=== PATIENT | female | born 1945 | race Caucasian/White ===

== ENCOUNTER 2016-04-14 12:03 | Emergency (ER) | payer MEDICARE, BC ==
[~2016-04-14] VITALS: Ht 160 cm; Wt 52.9 kg
[~2016-04-14 12:03] MED LIST: ALPR0.5T3 PO; CIPR500T4 PO; ENOX30P SQ; LIPI80TA16 PO; PERC5TAB12 PO; POTA-243 PO; ULTR50TA PO; Z.0.CPM; [UNRECOGNIZED DRUG - CODE] PO
[2016-04-14 12:13] VITALS: BP 122/70; PULSE 75; RESP 16; TEMP 98.5; O2SAT 98
[2016-04-14] MEDS ORDERED: ALEN1TAB48 PO (12:27)
[2016-04-14] MEDS ORDERED: CLOP75TA PO (12:27)
[2016-04-14] MEDS ORDERED: ATOR1TAB18 PO (12:27)
[2016-04-14] MEDS ORDERED: POTA75TA PO (12:27)
[2016-04-14] MEDS ORDERED: ALPR0.5T3 PO (12:27)
[2016-04-14] MEDS ORDERED: VITA100064 PO (12:27)
[2016-04-14 12:31] VITALS: BP 162/59; PULSE 67; RESP 18; O2SAT 97
[2016-04-14] MEDS ORDERED: SODIUM CHLOR 0.9% 1000 ML INJ 1,000 ML IV SCH (12:40)
[2016-04-14] MEDS ORDERED: SODIUM CHLORIDE 0.9% FLUSH 5 ML FLUSH IVF PRN (12:45)
[2016-04-14] MEDS ORDERED: ONDANSETRON HCL 4 MG/2 ML VIAL IVP ONE (12:45)
--- NOTE | 2016-04-14 12:46 | PD ---
HPI Chief Complaint: GI Complaint Time Seen by Provider: 12:33 Travel History International Travel<30 days: No Contact w/Intl Traveler<30days: No Traveled to known affect area: No History of Present Illness HPI The patient is a 70-year-old female who presents emergency department for nausea, vomiting, and diarrhea. The patient states she was in [place] last week, had a few days of the "runs ", however, states her diarrhea resolved. However, the patient awakened Sunday night with epigastric abdominal pain and then had a bowel movement she describes as loose, watery, and dark. The patient states that the epigastric abdominal pain at that time has resolved, however, she continues to have nausea and multiple episodes of diarrhea which she describes as loose, watery, and brown. The patient denies any visible blood in her diarrhea. The patient was able to eat chicken broth yesterday as well as Gatorade, however, the nausea returned. The patient called her primary physician, Dr. Narayanan, who referred her to the emergency department for further evaluation. The patient denies any acute abdominal pain upon presentation, does complain of mild nausea. The patient has a previous history of complete hysterectomy, denies any known history of gallbladder- related disorders. Patient denies any accompanying fever, chills, or sweats. PFSH Past Medical History Hx Anticoagulant Therapy: Yes (PLAVIX) Arthritis: Yes (OSTEOARTHRITIS) Autoimmune Disease: No Blood Disorders: No Anxiety: No Depression: No Cancer: Yes (LEFT LUNG CANCER) Cardiovascular Problems: Yes (CHOL) High Cholesterol: Yes Chemotherapy: No Cerebrovascular Accident: Yes (TIA) Diabetes: No Diminished Hearing: No Endocrine: No Gastrointestinal Disorders: Yes (NAUSEA FOR THE LAST WEEK) Genitourinary: No Hepatitis: No Hiatal Hernia: No Immune Disorder: No Kidney Stones: No Musculoskeletal: Yes (ARTHRITIS RIGHT HIP AND OSTEOPOROSIS) Neurologic: Yes Psychiatric: No Reproductive: No Respiratory: No Migraines: No Radiation Therapy: No Renal Failure: No Seizures: No Thyroid Disease: No Influenza Vaccination: Yes PNEUMOCCOCAL Vaccine (Year): 2 ?: Not Menopausal: Yes Past Surgical History Abdominal Surgery: No AICD: No Body Medical Devices: NONE Cardiac Surgery: No Ear Surgery: No Endocrine Surgery: No Eye Surgery: No Genitourinary Surgery: No Gynecologic Surgery: Yes (HYSTERECTEMY) Hysterectomy: Yes Joint Replacement: No Mastectomy: Yes Neurologic Surgery: No Oral Surgery: Yes (TONSILECTEMY) Pacemaker: No Thoracic Surgery: Yes (LEFT UPPER LOBECTOMY) Tonsillectomy: Yes Social History Alcohol Use: No Tobacco Use: No (QUIT 12/2010) Substance Use: No Allergies-Medications (Allergen,Severity, Reaction): Coded Allergies: Levaquin (Verified Allergy, Intermediate, Nausea/Vomiting, 04/14/16) Hydrocodone (Unverified Adverse Reaction, Severe, Nausea/Vomiting, 04/14/16 ) Reported Meds & Prescriptions Reported Meds & Active Scripts Active Reported Vitamin D (Cholecalciferol) 1,000 Unit Tab 1,200 Units PO DAILY Alendronate (Alendronate Sodium) 70 Mg Tab 70 Mg PO Q7D Potassium 75 Mg Tab 10 Mg PO DAILY Clopidogrel (Clopidogrel Bisulfate) 75 Mg Tab 75 Mg PO DAILY Atorvastatin (Atorvastatin Calcium) 80 Mg Tab 80 Mg PO HS Alprazolam 0.5 Mg Tab 1 Mg PO HS PRN Review of Systems Except as stated in HPI: all other systems reviewed are Neg General / Constitutional: No: Fever Cardiovascular: No: Chest Pain or Discomfort Respiratory: No: Shortness of Breath Gastrointestinal: Positive: Nausea, Vomiting, Diarrhea, Abdominal Pain Genitourinary: No: Dysuria Musculoskeletal: No: Weakness Neurologic: No: Weakness, Dizziness Physical Exam Narrative GENERAL: Awake, alert, pleasant 30-year-old female who appears her stated age and is in no acute respiratory distress. SKIN: Warm and dry. HEAD: Atraumatic. Normocephalic. EYES: No scleral icterus. No injection or drainage. ENT: No nasal bleeding or discharge. No visible teeth. Slightly dry mucous membranes. NECK: Trachea midline. No JVD. CARDIOVASCULAR: Regular rate and rhythm. No murmur appreciated. RESPIRATORY: No accessory muscle use. Clear to auscultation. Breath sounds equal bilaterally. GASTROINTESTINAL: Abdomen soft, non-tender, nondistended. Negative Cobb's. Negative McBurney's. No rebound tenderness, guarding, or rigidity. MUSCULOSKELETAL: No obvious deformities. No clubbing. No cyanosis. No edema. NEUROLOGICAL: Awake and alert. No obvious cranial nerve deficits. Motor grossly within normal limits. Normal speech. PSYCHIATRIC: Appropriate mood and affect; insight and judgment normal. Data Data Last Documented VS Vital Signs Date Time Temp Pulse Resp B/P Pulse Ox O2 Delivery O2 Flow Rate FiO2 04/14/16 12:59 65 18 148/61 97 Room Air 04/14/16 12:13 98.5 Orders Complete Blood Count With Diff (04/14/16 12:40) Comprehensive Metabolic Panel (04/14/16 12:40) Lipase (04/14/16 12:40) Lactic Acid (04/14/16 12:40) Urinalysis - C+S If Indicated (04/14/16 12:40) Iv Access Insert/Monitor (04/14/16 12:40) Ecg Monitoring (04/14/16 12:40) Oximetry (04/14/16 12:40) Ondansetron Inj (Zofran Inj) (04/14/16 12:45) Sodium Chlor 0.9% 1000 Ml Inj (Ns 1000 M (04/14/16 12:40) Sodium Chloride 0.9% Flush (Ns Flush) (04/14/16 12:45) Urine Culture (04/14/16 12:41) Labs Laboratory Tests Test 04/14/16 04/14/16 12:41 12:46 Urine Collection Type CLEAN CATCH Urine Color YELLOW Urine Turbidity CLEAR Urine pH 5.5 Urine Specific [place] 1.018 Urine Protein NEG mg/dL Urine Glucose (UA) NEG mg/dL Urine Ketones NEG mg/dL Urine Occult Blood MOD Urine Nitrite NEG Urine Bilirubin NEG Urine Leukocyte Esterase SMALL Urine WBC 9-14 /hpf Urine Squamous Epithelial > 8 /hpf Cells Urine Bacteria MOD /hpf Microscopic Urinalysis Comment CULTURE INDICATED Urine Collection Time 12:41 White Blood Count 6.4 TH/MM3 Red Blood Count 4.36 MIL/MM3 Hemoglobin 12.9 GM/DL Hematocrit 39.1 % Mean Corpuscular Volume 89.8 FL Mean Corpuscular Hemoglobin 29.5 PG Mean Corpuscular Hemoglobin 32.8 % Concent Red Cell Distribution Width 14.6 % Platelet Count 210 TH/MM3 Mean Platelet Volume 8.5 FL Neutrophils (%) (Auto) 71.8 % Lymphocytes (%) (Auto) 22.8 % Monocytes (%) (Auto) 4.0 % Eosinophils (%) (Auto) 0.6 % Basophils (%) (Auto) 0.8 % Neutrophils # (Auto) 4.5 TH/MM3 Lymphocytes # (Auto) 1.5 TH/MM3 Monocytes # (Auto) 0.3 TH/MM3 Eosinophils # (Auto) 0.0 TH/MM3 Basophils # (Auto) 0.1 TH/MM3 CBC Comment DIFF FINAL Differential Comment Sodium Level 144 MEQ/L Potassium Level 3.7 MEQ/L Chloride Level 106 MEQ/L Carbon Dioxide Level 30.3 MEQ/L Anion Gap 8 MEQ/L Blood Urea Nitrogen 11 MG/DL Creatinine 1.10 MG/DL Estimat Glomerular Filtration 49 ML/MIN Rate Random Glucose 108 MG/DL Lactic Acid Level 0.8 mmol/L Calcium Level 8.5 MG/DL Total Bilirubin 0.6 MG/DL Aspartate Amino Transf 16 U/L (AST/SGOT) Alanine Aminotransferase 19 U/L (ALT/SGPT) Alkaline Phosphatase 82 U/L Total Protein 7.2 GM/DL Albumin 3.4 GM/DL Lipase 151 U/L [facility] Medical Decision Making Medical Screen Exam Complete: Yes Emergency Medical Condition: Yes Medical Record Reviewed: Yes Interpretation(s) Laboratory Tests Test 04/14/16 04/14/16 12:41 12:46 Urine Collection Type CLEAN CATCH Urine Color YELLOW Urine Turbidity CLEAR Urine pH 5.5 Urine Specific [place] 1.018 Urine Protein NEG mg/dL Urine Glucose (UA) NEG mg/dL Urine Ketones NEG mg/dL Urine Occult Blood MOD Urine Nitrite NEG Urine Bilirubin NEG Urine Leukocyte Esterase SMALL Urine WBC 9-14 /hpf Urine Squamous Epithelial > 8 /hpf Cells Urine Bacteria MOD /hpf Microscopic Urinalysis Comment CULTURE INDICATED Urine Collection Time 12:41 White Blood Count 6.4 TH/MM3 Red Blood Count 4.36 MIL/MM3 Hemoglobin 12.9 GM/DL Hematocrit 39.1 % Mean Corpuscular Volume 89.8 FL Mean Corpuscular Hemoglobin 29.5 PG Mean Corpuscular Hemoglobin 32.8 % Concent Red Cell Distribution Width 14.6 % Platelet Count 210 TH/MM3 Mean Platelet Volume 8.5 FL Neutrophils (%) (Auto) 71.8 % Lymphocytes (%) (Auto) 22.8 % Monocytes (%) (Auto) 4.0 % Eosinophils (%) (Auto) 0.6 % Basophils (%) (Auto) 0.8 % Neutrophils # (Auto) 4.5 TH/MM3 Lymphocytes # (Auto) 1.5 TH/MM3 Monocytes # (Auto) 0.3 TH/MM3 Eosinophils # (Auto) 0.0 TH/MM3 Basophils # (Auto) 0.1 TH/MM3 CBC Comment DIFF FINAL Differential Comment Sodium Level 144 MEQ/L Potassium Level 3.7 MEQ/L Chloride Level 106 MEQ/L Carbon Dioxide Level 30.3 MEQ/L Anion Gap 8 MEQ/L Blood Urea Nitrogen 11 MG/DL Creatinine 1.10 MG/DL Estimat Glomerular Filtration 49 ML/MIN Rate Random Glucose 108 MG/DL Lactic Acid Level 0.8 mmol/L Calcium Level 8.5 MG/DL Total Bilirubin 0.6 MG/DL Aspartate Amino Transf 16 U/L (AST/SGOT) Alanine Aminotransferase 19 U/L (ALT/SGPT) Alkaline Phosphatase 82 U/L Total Protein 7.2 GM/DL Albumin 3.4 GM/DL Lipase 151 U/L Differential Diagnosis Differential diagnosis includes gastroenteritis, viral syndrome, food poisoning , dehydration, acute renal failure, pancreatitis, hepatitis, peptic ulcer disease, diverticulitis, colitis. Narrative Course IV was established, labs were drawn and sent, and the patient was placed on cardiac telemetry monitoring and continuous pulse oximetry monitoring. Patient was administered Zofran and IV fluids. The patient had no abdominal pain upon presentation and abdominal exam was benign, therefore, no pain medication or CT the abdomen/pelvis was initially ordered. Patient's white count was normal. Patient's creatinine is mildly elevated at 1.10. UA reveals WBCs and bacteria, therefore, will be treated for UTI. The patient was reassessed at 1:40 PM, her symptoms had significantly improved. Patient be discharged home on Zofran and Bactrim. The patient will be provided a copy of her labs so she can follow-up with her primary physician. She is advised to have a clear liquid diet and advance as tolerated. Return if symptoms worsen or progress. Diagnosis Primary Impression: Gastroenteritis Additional Impression: UTI (urinary tract infection) Qualified Code: N30.00 - Acute cystitis without hematuria Patient Instructions: General Instructions Additional Instructions: Clear liquid diet. Advance diet as tolerated. Bactrim and Zofran as needed. Please provide the patient a copy of her labs at discharge. Follow-up with her primary physician. Return if symptoms worsen or progress. Med/Other Pt SpecificInfo: Prescription(s) given Scripts Ondansetron Odt (Zofran Odt)4 Mg Tab4 Mg SL Q6HR PRN (Nausea/Vomiting) #7 TAB Ref 0 Prov:Frank Barrera MD 04/14/16 Sulfamethoxazole-Trimethoprim (Bactrim DS)800-160 Mg Tab1 Tab PO BID #6 TAB Ref 0 Prov:Frank Barrera MD 04/14/16 Disposition: 01 DISCHARGE HOME Condition: Stable Frank Barrera MD Apr 14, 2016 12:46
[2016-04-14 12:52] VITALS: O2SAT 98
[2016-04-14 12:59] VITALS: BP 148/61; PULSE 65; RESP 18; O2SAT 97
[2016-04-14 13:00] LABS: GLUCOSE,URINE NEG (NEG); KETONE, URINE NEG (NEG); NITRITE,URINE NEG (NEG); PH, URINE 5.5 (5.0-8.5)
[2016-04-14 13:02] LABS: AUTOMATED NEUTROPHIL # 4.5 TH/MM3 (1.8-7.7); BASOPHIL # 0.1 TH/MM3 (0-0.2); BASOPHIL % 0.8 % (0.0-2.0); EOSINOPHIL % 0.6 % (0.0-4.0); HEMATOCRIT 39.1 % (35.0-46.0); HEMO FLAGS DIFF FINAL; LYMPH % 22.8 % (9.0-44.0); LYMPHOCYTE # 1.5 TH/MM3 (1.0-4.8); MEAN CELL VOLUME 89.8 FL (80.0-100.0); MEAN CORPUSCULAR HEMOGLOBIN 29.5 PG (27.0-34.0); MEAN CORPUSCULAR HGB CONC 32.8 % (32.0-36.0); NEUT % 71.8 % (16.0-70.0); PLATELET COUNT 210 TH/MM3 (150-450); RED BLOOD COUNT 4.36 MIL/MM3 (4.00-5.30); RED CELL DISTRIBUTION WIDTH 14.6 % (11.6-17.2); WHITE BLOOD COUNT 6.4 TH/MM3 (4.0-11.0)
[2016-04-14 13:07] LABS: CHLORIDE 106 MEQ/L (98-107); POTASSIUM 3.7 MEQ/L (3.5-5.1); SODIUM (NA) 144 MEQ/L (136-145)
[2016-04-14 13:11] LABS: BLOOD, URINE MOD (NEG); METHOD OF COLLECTION CLEAN CATCH; URINE COLOR YELLOW (YELLW/STRAW)
[2016-04-14 13:11] LABS: ANION GAP 8 MEQ/L (5-15); BICARBONATE 30.3 MEQ/L (21.0-32.0); BLOOD UREA NITROGEN 11 MG/DL (7-18)
[2016-04-14 13:12] LABS: BACTERIA, URINE MOD /hpf; COMMENT (UR) CULTURE INDICATED; CULTURE IF INDICATED CULTURE INDICATED; SQUAMOUS EPITHELIAL CELL URINE > 8 /hpf (0-5)
[2016-04-14 13:13] LABS: ALT (GPT) 19 U/L (10-53)
[2016-04-14 13:14] LABS: AST (GOT) 16 U/L (15-37); GLOMERULAR FILTRATION RATE 49 ML/MIN (>89)
[2016-04-14 13:15] LABS: TOTAL BILIRUBIN ADULT 0.6 MG/DL (0.2-1.0)
[2016-04-14 13:16] LABS: ALKALINE PHOSPHATASE 82 U/L (45-117)
[2016-04-14] MEDS ORDERED: ZOFR4TAB3 SL (13:42)
[2016-04-14] MEDS ORDERED: BACT800T5 PO (13:42)
== END 2016-04-14 13:53 | disposition home or self-care (01) ==
LOC: PHED 12:03
DX: N39.0 Urinary tract infection, site not specified (principal); K52.9 Noninfective gastroenteritis and colitis, unspecified; R11.2 Nausea with vomiting, unspecified; R19.7 Diarrhea, unspecified; Z79.01 Long term (current) use of anticoagulants; E78.00 Pure hypercholesterolemia, unspecified; Z86.73 Personal history of transient ischemic attack (TIA), and cerebral infarction without residual deficits; M81.0 Age-related osteoporosis without current pathological fracture; Z87.891 Personal history of nicotine dependence
CPT/HCPCS: 80053; 81001; 83605; 83690; 85025; 87086; 96361; 96374; 99284; J2405; J7030

== ENCOUNTER 2018-04-15 06:42 | Inpatient (IN) ==
[2018-04-15] MEDS ORDERED: Post-op Orders (for Pharmacy) OTHER STA (07:01)
[2018-04-15] MEDS ORDERED: HYDROmorphone PF Inj 1 MG/ML Ampul IV.PUSH PRN (07:01)
[2018-04-15] MEDS ORDERED: Bisacodyl 10 MG Supp RECTAL PRN (07:01)
[2018-04-15] MEDS ORDERED: Dexamethasone Inj 20 MG/5 ML Vial IV.PUSH SCH (07:21)
[2018-04-15] MEDS ORDERED: ceFAZolin 2 GM IV; once IV.SIG SCH (07:30)
[2018-04-15] MEDS ORDERED: Chlorhexidine 4% Topical 120 APPLIC/120 ML Bottle TOPICAL SCH (07:30)
[2018-04-15] MEDS ORDERED: Dexamethasone PF Inj 10 MG/ML Vial ONE ×2 (07:32→07:34)
[2018-04-15] MEDS ORDERED: Sodium Chlor 0.9% Inj 250 ML ONE (07:34)
[2018-04-15] MEDS ORDERED: Sodium Chlor 0.9% Inj 40 ML, Bupivacaine Liposo PF 1.3% Inj 20 ML P-ARTICULR ONE ×4 (07:39→07:55)
[2018-04-15] MEDS ORDERED: Dexamethasone PF Inj 10 MG/ML Vial IV.PUSH SCH (07:45)
[2018-04-15] MEDS ORDERED: Metoprolol Tartrate 25 MG Tablet PO ONE ×3 (07:47→08:06)
[2018-04-15] MEDS ORDERED: Chlorhexidine Gluconate 2% 1 Pack (2 Cloths) TOPICAL ONE ×3 (07:47→08:06)
[2018-04-15] MEDS ORDERED: SODIUM CHLOR 0.9% IV.SIG SCH (08:00)
[2018-04-15] MEDS ORDERED: Vancomycin Inj 1,000 MG in Sodium Chlor 0.9% Inj 250 ML IV.SIG SCH (08:00)
[2018-04-15] MEDS ORDERED: TRANEXAMIC ACID IV.SIG SCH (08:00)
[2018-04-15] MEDS ORDERED: Sodium Chlor 0.9% Inj 500 ML IV.SIG SCH ×3 (08:00→09:00)
[2018-04-15] MEDS ORDERED: Tranexamic Acid Inj 3,000 MG in Sodium Chlor 0.9% Inj 100 ML P-ARTICULR SCH (08:00)
[2018-04-15] MEDS ORDERED: Glycopyrrolate Inj 1 MG/5 ML Syringe IV.PUSH ONE (10:45)
[2018-04-15] MEDS ORDERED: Neostigmine Inj 5 MG/5 ML Syringe IV.PUSH ONE (10:45)
[2018-04-15] MEDS ORDERED: Lidocaine PF 1% Inj 5 ML Syringe OTHER ONE (10:45)
--- NOTE | 2018-04-15 12:54 | P.OP ---
Procedure: PREOPERATIVE DIAGNOSIS: Right hip osteoarthritis. POSTOPERATIVE DIAGNOSIS: Right hip osteoarthritis. PROCEDURE PERFORMED: Right total hip arthroplasty. SURGEON: Dr. Shawn Carranza M.D. FUNERAL ARRANGEMENT DIRECTOR: ANNE MARIE Driscoll. ANESTHESIA: General. ESTIMATED BLOOD LOSS: 250 mL. COMPLICATIONS: None. IMPLANTS USED: Depuy [place] femoral stem 10 [place] Gripsion Cup []50 Poly insert liner neutral [] 50/32 femoral head [] 32 mm cobalt chrome neck length [] +1 JUSTIFICATION: This patient presents to the undersigned at the orthopedic clinic with chief complaints of severe Right hip pain. The pain is severe and constant and interferes with activities of daily living. The patient has failed greater than 3 months of nonoperative conservative treatment to include analgesic and nonsteroidal anti-inflammatory medications, physical therapy, cortisone injections, activity modification, weight loss, home exercise program, and use of ambulatory assistive aids. X-rays of right hip reveal severe osteoarthritis with [id number] joint space narrowing, subchondral sclerosis, subchondral cysts, osteophyte formation with subluxation. The patient was counseled on risks, benefits, and alternatives to a total hip arthroplasty. The risks were discussed, which include, but are not limited to, anesthesia, bleeding, infection, damage to nerves and blood vessels , pain, stiffness, fracture, dislocations, leg length discrepancy, failure of components, blood clots, pulmonary embolus, and even . The patient favored the benefits over the risks, did wish to proceed with surgery. PROCEDURE IN DETAIL: Written consent was obtained. The patient was identified by name, taken to the operating room and placed supine on the operating table. General anesthesia was administered. The patient was preoperative IV antibiotics. The patient right and left feet were placed in the padded traction boots. The right hip and lower extremity was then prepped and draped using isopropyl alcohol, Hibiclens solution and ChloraPrep solution. After a timeout was performed, a longitudinal incision was made over the anterior aspect of the right hip. The fascia mario was incised. Dissection was carried over the tensor fascia mario beneath the rectus femoris. After exposure of the anterior capsule, a capsulotomy incision was performed. An oscillating saw was used to perform a femoral neck cut. The osteoarthritic femoral head and neck was removed. A 10 blade scalpel was used to excise the labrum. Sequential reaming of the acetabulum was performed. Subsequently a porous-coated titanium acetabular cup was implanted in a press manner in approximately 45 degrees of abduction and 10 degrees of anteversion. 3 screws were placed in the posterior superior quadrant for additional stabilization. There was good purchase and fixation after insertion of the acetabular cup and screws. The cup was tested manually and noted to have excellent stability and fixation. A neutral highly cross-linked polyethylene liner was placed within the cup. The liner was impacted in place for fixation and tested for stability. Attention was turned to the femur where the leg was externally rotated, extended and adducted. The capsule was released off the undersurface of the greater trochanter to allow for elevation and lateralization of the femur. A box cutting osteotome was used to gain entrance into the intramedullary canal of the femur. This was followed by a canal finder and sequential broaching. A calcar planer to plane the calcar. A trial head and neck combination were evaluated prior to implantation of final components. With the final implants placed, the leg could achieve external rotation of 70 degrees and extension to the the ground without evidence of anterior instability or impingement. Soft tissue tension felt appropriate. Fluoroscopic imaging showed appropriate implantation of components. The Surgical wound was thoroughly irrigated with sterile saline Pulse Lavage antibiotic impregnated solution. The fascial layer was closed with #1 Vicryl suture, subcutaneous layer with 2-0 Vicryl sutures. The skin was closed with Dermabond. Sterile dressing applied. No intraoperative complications noted. Johnathon Flores, Physician Building Stonecutter, Certified was present for the entire procedure to include the patient position, the procedure itself. The medical necessity of a physician library circulation assistant was indicated in this case due to the complexity of the procedure. He assisted with position of the patient along with the ear itself. During the procedure he assisted with exposure and the retraction of muscle, tendon, bone, and neurovascular vessel structures. He assisted with the preparation of bone and also implantation of the prosthetic replacement. There was a surgical device sales representative in the room that assisted with management of instruments, but was not available to assist with the surgery itself. Shawn Barrera MD Surgeon: Shawn Barrera MD
[2018-04-15] MEDS ORDERED: *Meperidine Inj 25 MG/ML Vial PERIprocedural Use ONLY ONE (13:15)
[2018-04-15] MEDS ORDERED: fentaNYL Citrate Inj 100 MCG/2 ML Ampul ONE (13:18)
[2018-04-15] MEDS ORDERED: *morphine SULFATE 4 MG/ML PERIprocedure ONLY ONE (13:34)
--- NOTE | 2018-04-15 13:43 | XR ---
EXAM DATE: 04/15/2018 1:12 PM EST AGE/SEX: 72 years / Female INDICATIONS: Post-op total right hip arthroplasty. CLINICAL DATA: This is the patient's initial encounter. Patient reports that signs and symptoms have been present for 1 day and indicates a pain score of Nonresponsive. MEDICAL/SURGICAL HISTORY: Non-responsive. Non-responsive. COMPARISON: No prior exams available for comparison. FINDINGS: 2 views are recorded digitally in the operating room with C-arm during total hip arthroplasty. CONCLUSION: Intraoperative images. Electronically signed by: Ayo Reyes MD Board Certified Radiologist 04/15/2018 1:41 PM EST
[2018-04-15] MEDS: Senna/Docusate Sodium 8.6/50 MG Tablet PO SCH ×2 (13:47→22:14)
[2018-04-15] MEDS: Multivitamin/Minerals Therapeutic Tablet PO SCH ×2 (13:48→22:13)
--- NOTE | 2018-04-15 14:42 | XR ---
EXAM DATE: 04/15/2018 2:23 PM EST AGE/SEX: 72 years / Female INDICATIONS: Post op total right hip replacement. CLINICAL DATA: This is the patient's initial encounter. Patient reports that signs and symptoms have been present for 1 day and indicates a pain score of 4/10. MEDICAL/SURGICAL HISTORY: None. None. COMPARISON: POI, XR HIP W/ AP PELVIS, BILATERAL, 03/14/2016. . FINDINGS: Right total hip arthroplasty. The femoral and acetabular components are appropriately addition withou t fracture or dislocation. Degenerative osteoarthritic changes in the left hip. Dystrophic type calci fications are seen in the central and left mid pelvis which were not present previously. Stable ather osclerotic calcification of the regional vasculature. CONCLUSION: 1. Appropriate postoperative appearance of the right hip status post total arthroplasty. 2. Mild degenerative osteoarthritic changes of the left hip. 3. Stable atherosclerotic calcification of the regional vasculature. New, benign-appearing dystrophi c type calcifications in the mid and left pelvis. Electronically signed by: Prosper Rubio MD Board Certified Radiologist 04/15/2018 2:40 PM EST
[2018-04-15] MEDS: ceFAZolin 2 GM Premix Inj 2 GM/50 ML PIGGYBACK IV.SIG SCH (19:07)
[2018-04-15] MEDS ORDERED: Zolpidem Tartrate 5 MG Tablet PO PRN (21:00)
[2018-04-16] MEDS: ceFAZolin 2 GM Premix Inj 2 GM/50 ML PIGGYBACK IV.SIG SCH ×2 (00:30→06:00)
[2018-04-16 06:49] LABS: Hematocrit 29.1 % (35.0-46.0); Hemoglobin 9.7 gm/dL (11.6-15.3)
--- NOTE | 2018-04-16 08:14 | P.PNOP ---
Subjective Interval history: hip sore. nausea. Physical Exam Vital signs: Vital Signs 04/15/18 13:08 04/15/18 13:15 04/15/18 13:30 Temperature 97.7 F Pulse Rate 79 73 74 Respiratory Rate 20 15 20 Blood Pressure 134/62 141/65 H 134/55 L Pulse Oximetry 97 100 100 04/15/18 13:33 04/15/18 13:45 04/15/18 14:00 Temperature 98.2 F Pulse Rate 66 69 Respiratory Rate 18 19 Blood Pressure 130/60 127/62 Pulse Oximetry 100 100 100 04/15/18 14:15 04/15/18 14:21 04/15/18 16:00 Temperature 97.5 F L Pulse Rate 69 65 74 Respiratory Rate 17 18 16 Blood Pressure 123/56 L 134/61 135/61 Pulse Oximetry 100 100 98 04/15/18 20:30 04/16/18 00:00 04/16/18 00:25 Temperature 98.0 F 98.3 F Pulse Rate 80 82 Respiratory Rate 17 17 16 Blood Pressure 98/64 L 104/51 L Pulse Oximetry 96 95 04/16/18 05:05 Temperature 97.8 F Pulse Rate 72 Respiratory Rate 18 Blood Pressure 109/51 L Pulse Oximetry 97 Intake & Output 04/15/18 04/16/18 04/16/18 18:59 06:59 18:59 Intake Total 2468.34 / 2468.34 1900 / 1900 Output Total 400 / 400 Balance 2068.34 / 2068.34 1900 / 1900 Weight 55.6 kg 55.6 kg Intake: IV 408.34 / 408.34 1150 / 1150 LR 1000 mL Inj 1,000 ML @ 80 1000 / 1000 mls/hr IV.CONT .[id number] KAYA Rx# :[id number] Cyklokapron Inj 834 MG In NS 108.34 / 108.34 Inj 100 ML @ 200 mls/hr IV.SIG GEAR FINISHER KAYA Rx#:[id number] Vancomycin Inj 1,000 MG In NS 250 / 250 Inj 250 ML @ 250 mls/hr IV.SIG GEAR FINISHER KAYA Rx#:[id number] Ancef 2 GM Premix Inj 2 gm In 50 / 50 150 / 150 50 ml @ 100 mls/hr IV.SIG Q6H KAYA Rx#:[id number] Oral 360 / 360 750 / 750 Anesthesia Amount 1700 / 1700 Output: Estimated Blood Loss 400 / 400 Other: # Voids 1 1 # Bowel Movements 0 0 Weight On Admission 55.6 kg Narrative: in bed, nad dressing c/d/i thigh soft neg homans nvi Results - Labs CBC & Chem 7: 04/16/18 06:11 Laboratory Results - last 24 hr 04/15/18 04/16/18 07:25 06:11 Hgb 9.7 L Hct 29.1 L Antibody Screen Negative - Imaging Impressions Hip X-Ray 04/15/18 00:00 CONCLUSION: Intraoperative images. Hip X-Ray 04/15/18 07:01 CONCLUSION: 1. Appropriate postoperative appearance of the right hip status post total arthroplasty. 2. Mild degenerative osteoarthritic changes of the left hip. 3. Stable atherosclerotic calcification of the regional vasculature. New, benign-appearing dystrophic type calcifications in the mid and left pelvis. Assessment and Plan - Ortho Post Op Day # 1 - Assessment and Plan s/p R ERICA anterior approach wbat maintain dressing asa d/c planning home with PT - wed f/up dr. north 2 weeks
[2018-04-16] MEDS: Senna/Docusate Sodium 8.6/50 MG Tablet PO SCH ×2 (09:38→21:29)
[2018-04-16] MEDS: Multivitamin/Minerals Therapeutic Tablet PO SCH ×2 (09:38→21:29)
[2018-04-17 01:59] VITALS: TEMP 99.7
[2018-04-17 06:32] VITALS: BP 102/48; PULSE 84; RESP 18; O2SAT 92
[2018-04-17 08:28] LABS: Hematocrit 26.9 % (35.0-46.0)
== END 2018-04-17 09:12 | disposition home health service (06) | DRG 470 ==
LOC: HSDI 06:42 → N06 14:27
PROVIDERS: ADMIT Orthopaedic Surgery Sports Medicine; ATTEND Orthopaedic Surgery Sports Medicine
CPT/HCPCS: 73502; 76000; 85014; 85018; 86850; 86900; 86901; 94150; 97110; 97116; 97150; 97162; 97166; C1713; C1776; C9290; J0690; J1100; J1580; J2175; J2250; J2270; J2405; J2704; J2710; J3010; J3370; J7050; J7120